=== PATIENT | male | born 1970 | race African-American/Black ===

== ENCOUNTER 2016-05-29 18:29 | Emergency (ER) | payer SELFPAY ==
[~2016-05-29] VITALS: Ht 177.8 cm; Wt 72.6 kg
[2016-05-29 19:43] LABS: Basophils # (auto) 0 uL; Basophils % (auto) 0.3 % (0.0-2.0); Eosinophils # (auto) 0 uL; Eosinophils % (auto) 0.4 % (0.0-7.0); Hematocrit 46.4 % (41.0-53.0); Hemoglobin 15.4 g/dL (13.5-17.5); Lymphocytes # (auto) 1.1 uL; Lymphocytes % (auto) 12.8 % (10.0-50.0); Mean Corpuscular Hemoglobin 30.9 pg (28.0-32.0); Mean Corpuscular Hgb Conc. 33.1 g/dL (32.0-36.0); Mean Corpuscular Volume 93.1 fL (80.0-100.0); Mean Platelet Volume 9.2 fL (7.4-10.4); Monocytes # (auto) 1.2 uL; Monocytes % (auto) 13.7 % (0.0-12.0); Neutrophils # (auto) 6.5 uL; Neutrophils % (auto) 72.8 % (37.0-80.0); Platelet Count (auto) 176 10^3/uL (140-450); Red Cell Distribution Width 12.6 % (11.6-16.0); White Blood Cell 8.9 10^3/uL (4.4-10.8)
[2016-05-29 19:58] LABS: Albumin 4.3 g/dL (3.4-5.0); BUN/Creatinine Ratio 14.2; Bilirubin, Total 0.4 mg/dL (0.2-1.0); Calcium 8.8 mg/dL (8.5-10.1); Potassium 4.2 mmol/L (3.5-5.1); Total Protein 8.4 g/dL (6.4-8.2)
[2016-05-30 00:35] LABS: Urine Bilirubin Negative (Negative); Urine Blood Negative /uL (Negative); Urine Color Yellow (Yellow); Urine Glucose Normal (Normal); Urine Ketone 2+ (Negative); Urine Mucus FEW (None Seen); Urine Nitrite Negative (Negative); Urine RBC <1 /hpf (0 - 3); Urine Squamous Epithelial Cell FEW /hpf (<5); Urine Urobilinogen Normal (Negative); Urine pH 5.5 (5.0-8.0)
[2016-05-30] MEDS ORDERED: KETOROLAC TROMETH 30 MG/ML 1ML VIAL IV ONE (04:15)
[2016-05-30] MEDS ORDERED: SODIUM CHLORIDE 0.9% 1,000 ML IV ONE (04:15)
[2016-05-30] MEDS ORDERED: ONDANSETRON HCL 4 MG/2 ML VIAL IV ONE ×2 (04:15→08:45)
[2016-05-30] MEDS ORDERED: SODIUM CHLORIDE 0.9% 2,000 ML IV ONE (09:00)
[2016-05-30 10:13] VITALS: BP 137/79
== END 2016-05-30 10:23 | disposition home or self-care (01) ==
LOC: ER 18:37
DX: R10.11 Right upper quadrant pain (principal); R11.2 Nausea with vomiting, unspecified; J45.909 Unspecified asthma, uncomplicated; F12.10 Cannabis abuse, uncomplicated
CPT/HCPCS: 36415; 71020; 76705; 80053; 81001; 83690; 85025; 94761; 96361; 96374; 96375; 96376; 99285; J1885; J2405; J7030